=== PATIENT | female | born 1955 | race Caucasian/White ===

== ENCOUNTER 2017-08-24 12:30 | Outpatient (CLI) | payer BC, OTHER ==
[2017-08-24 17:46] LABS: BILIRUBIN,URINE NEGATIVE (NEGATIVE); PH,URINE 7.5 PH (5.0-7.5)
[2017-08-24 18:29] LABS: UR CULTURE IF IND NOT INDICATED
== END 2017-08-24 12:31 ==
LOC: LAB.R 12:30
PROVIDERS: ATTEND Physician Assistant Medical
DX: N39.0 Urinary tract infection, site not specified (principal)
CPT/HCPCS: 81001; 87086

== ENCOUNTER 2017-10-05 08:00 | Outpatient (CLI) | payer OTHER ==
[2017-10-05 18:20] LABS: BILIRUBIN,URINE NEGATIVE (NEGATIVE); GLUCOSE, URINE (UA) NEGATIVE (NEGATIVE); KETONES,URINE (UA) NEGATIVE (NEGATIVE); LEUKOCYTE ESTERASE, URINE NEGATIVE (NEGATIVE); NITRITE,URINE NEGATIVE (NEGATIVE); OCCULT BLOOD,URINE NEGATIVE (NEGATIVE); PROTEIN,URINE NEGATIVE (NEGATIVE); UROBILINOGEN,URINE 0.2 (NORMAL) E.U./dL (NORMAL)
[2017-10-05 18:24] LABS: CLARITY,URINE CLEAR (CLEAR)
[2017-10-05 18:35] LABS: BACTERIA,URINE None Seen /HPF (None Seen); RBC,URINE 0-5 /HPF (0-5); SQUAMOUS EPITHELIAL CELL,UR RARE Squamous (<= Few)
== END 2017-10-05 08:01 | disposition home or self-care (01) ==
LOC: LAB.R 08:00
PROVIDERS: ATTEND Nurse Practitioner Family
DX: N39.0 Urinary tract infection, site not specified (principal)
CPT/HCPCS: 81001; 87086

== ENCOUNTER 2018-05-26 14:30 | Outpatient (CLI) | payer OTHER ==
[2018-05-26 17:36] LABS: ALBUMIN 4.7 g/dL (3.2-5.5); ALBUMIN/GLOBULIN RATIO 1.7 (1.0-2.2); BILIRUBIN,TOTAL 0.9 mg/dL (0.2-1.0); CALCIUM 9.9 mg/dL (8.5-10.3); CREATININE 0.6 mg/dL (0.4-1.0); TOTAL PROTEIN 7.5 g/dL (6.7-8.2)
[2018-05-26 17:59] LABS: BASOPHILS % (AUTO) 0.4 %; EOSINOPHILS # (AUTO) 0.2 10^3/uL (0.0-0.7); EOSINOPHILS % (AUTO) 2.9 %; HGB - HEMOGLOBIN 14.8 g/dL (12.0-16.0); LYMPHOCYTES % (AUTO) 29.6 %; MEAN CORPUSCULAR HEMOGLOBIN 31.6 pg (27.0-31.0); MEAN CORPUSCULAR HGB CONC 34.6 g/dL (32.0-36.0); MEAN CORPUSCULAR VOLUME 91.4 fL (81.0-99.0); MEAN PLATELET VOLUME 8.1 fL (7.9-10.8); MONOCYTES # (AUTO) 0.6 10^3/uL (0.0-1.0); NEUTROPHILS % (AUTO) 58.1 %; PLT - PLATELET COUNT 290 10^3/uL (130-450); RED BLOOD COUNT 4.68 10^6/uL (4.20-5.40); WHITE BLOOD COUNT 6.8 x10^3/uL (4.8-10.8)
== END 2018-05-26 14:31 | disposition home or self-care (01) ==
LOC: LAB.F 14:30
PROVIDERS: ATTEND Physician Assistant Medical
DX: Z51.81 Encounter for therapeutic drug level monitoring (principal); Z79.899 Other long term (current) drug therapy
CPT/HCPCS: 36415; 80053; 85025

== ENCOUNTER 2020-02-15 02:38 | Emergency (ER) | payer BC ==
--- NOTE | 2020-02-15 02:41 | ED Physician Documentation ---
History of Present Illness - Stated complaint Stated Complaint: LEFT AB PX - History obtained from History obtained from: Patient (Patient is a 64-year-old female presents with a chief complaint of diffuse abdominal pain with nausea. She reports she is got a history of colon cancer with bowel resection and has had 2 previous bowel obstructions and she thinks she is have another bowel obstruction she ate dinner about 8:00 PM yesterday and since then she has had worsening nausea vomiting abdominal pain unable to pass any flatus and no bowel movements in the last 48 hours.) Review of Systems Constitutional: reports: Reviewed and negative Eyes: reports: Reviewed and negative Ears: reports: Reviewed and negative Nose: reports: Reviewed and negative Throat: reports: Reviewed and negative Cardiac: reports: Reviewed and negative Respiratory: reports: Reviewed and negative GI: reports: Abdominal Pain, Nausea, Vomiting : reports: Reviewed and negative Skin: reports: Reviewed and negative Musculoskeletal: reports: Reviewed and negative Neurologic: reports: Reviewed and negative Psychiatric: reports: Reviewed and negative Endocrine: reports: Reviewed and negative Immunocompromised: reports: Reviewed and negative PD PAST MEDICAL HISTORY - Present Medications Home Medications: Ambulatory Orders Medication Instructions Recorded Confirmed Hydrocodone/Acetaminophen [[place] 1 each PO Q6HR PRN #14 tablet 02/15/20 5-325 Tablet] Ondansetron Odt [Zofran Odt] 4 mg TL Q6H PRN #10 tablet 02/15/20 - Allergies Allergies/Adverse Reactions: Allergies Allergy/AdvReac Type Severity Reaction Status Date / Time No Known Drug Allergies Allergy Verified 02/15/20 03:21 PD ED PE NORMAL - Vitals Vital signs reviewed: Yes - General General: Alert and oriented X 3, No acute distress, Well developed/nourished - HEENT HEENT: Atraumatic, PERRL, Moist mucous membranes - Neck Neck: Supple, no meningeal sign - Cardiac Cardiac: RRR, No murmur, Strong equal pulses - Respiratory Respiratory: No respiratory distress, Clear bilaterally - Abdomen Abdomen: Other (The abdomen is diffusely tender to palpation with diminished bowel sounds there is no midline abdominal pulsatile mass patient is voluntarily guarding negative Da Silva sign negative Rovsing's negative psoas as no CVA tenderness no flank ecchymosis and no periumbilical ecchymosis.) - Derm Derm: Warm and dry - Extremities Extremities: No deformity, No tenderness to palpate, Normal ROM s pain, No edema, No calf tenderness / cord - Neuro Neuro: Alert and oriented X 3, gate attendant 2-12 intact, No motor deficit, No sensory deficit, Normal speech - Psych Psych: Normal mood, Normal affect Results - Vitals Vitals: Vital Signs - 24 hr 02/15/20 02/15/20 02:53 04:35 Temperature 36.9 C Heart Rate 88 82 Respiratory 16 16 Rate Blood Pressure 166/102 H 123/86 H O2 Saturation 98 95 Oxygen O2 Source Room air - EKG (time done) 03:00 Rate: Other (No STEMI) - Labs Labs: Laboratory Tests 02/15/20 02/15/20 02/15/20 03:08 03:08 03:08 WBC 4.9 RBC 5.00 Hgb 15.3 Hct 45.9 MCV 91.8 MCH 30.6 MCHC 33.3 RDW 11.4 L Plt Count 298 MPV 9.2 Neut # (Auto) 2.6 Lymph # (Auto) 1.9 [place] # (Auto) 0.3 Eos # (Auto) 0.1 Baso # (Auto) 0.0 Absolute Nucleated RBC 0.00 Nucleated RBC % 0.0 PT 11.0 INR 1.0 APTT 34.4 H Sodium 140 Potassium 3.6 Chloride 101 Carbon Dioxide 26 Anion Gap 13.0 BUN 18 Creatinine 0.6 Estimated GFR (MDRD) 101 Glucose 99 Lactic Acid Calcium 9.7 Total Bilirubin 0.8 AST 33 ALT 50 Alkaline Phosphatase 64 Total Creatine Kinase 104 Troponin I High Sens Total Protein 7.7 Albumin 4.9 Globulin 2.8 Albumin/Globulin Ratio 1.8 Lipase 139 H Urine Color Urine Clarity Urine pH Ur Specific Harrison Urine Protein Urine Glucose (UA) Urine Ketones Urine Occult Blood Urine Nitrite Urine Bilirubin Urine Urobilinogen Ur Leukocyte Esterase Urine RBC Urine WBC Ur Squamous Epith Cells Urine Bacteria Ur Microscopic Review Urine Culture Comments Urine Opiates Screen Ur Oxycodone Screen Urine Methadone Screen Ur Propoxyphene Screen Ur Barbiturates Screen Ur Tricyclics Screen Ur Phencyclidine Scrn Ur Amphetamine Screen U Methamphetamines Scrn U Benzodiazepines Scrn Urine Cocaine Screen U Cannabinoids Screen Ethyl Alcohol 8.6 02/15/20 02/15/20 02/15/20 03:08 03:08 04:50 WBC RBC Hgb Hct MCV MCH MCHC RDW Plt Count MPV Neut # (Auto) Lymph # (Auto) [place] # (Auto) Eos # (Auto) Baso # (Auto) Absolute Nucleated RBC Nucleated RBC % PT INR APTT Sodium Potassium Chloride Carbon Dioxide Anion Gap BUN Creatinine Estimated GFR (MDRD) Glucose Lactic Acid 1.1 Calcium Total Bilirubin AST ALT Alkaline Phosphatase Total Creatine Kinase Troponin I High Sens < 2.3 L Total Protein Albumin Globulin Albumin/Globulin Ratio Lipase Urine Color YELLOW Urine Clarity CLEAR Urine pH 5.5 Ur Specific Harrison 1.010 Urine Protein NEGATIVE Urine Glucose (UA) NEGATIVE Urine Ketones NEGATIVE Urine Occult Blood LARGE H Urine Nitrite NEGATIVE Urine Bilirubin NEGATIVE Urine Urobilinogen 0.2 (NORMAL) Ur Leukocyte Esterase NEGATIVE Urine RBC TNTC H Urine WBC 0-3 Ur Squamous Epith Cells FEW Squamous Urine Bacteria Rare Ur Microscopic Review INDICATED Urine Culture Comments NOT INDICATED Urine Opiates Screen POSITIVE H Ur Oxycodone Screen NEGATIVE Urine Methadone Screen NEGATIVE Ur Propoxyphene Screen NEGATIVE Ur Barbiturates Screen NEGATIVE Ur Tricyclics Screen NEGATIVE Ur Phencyclidine Scrn NEGATIVE Ur Amphetamine Screen NEGATIVE U Methamphetamines Scrn NEGATIVE U Benzodiazepines Scrn NEGATIVE Urine Cocaine Screen NEGATIVE U Cannabinoids Screen NEGATIVE Ethyl Alcohol PD MEDICAL DECISION MAKING - ED course Complexity details: reviewed results, re-evaluated patient (pain resolved. ct shows 5mm mid ureteral stone. afebrile, no white count, kidney function appropriate. will dc with close f/u.), considered differential (History and exam are concerning for bowel obstruction. also in the diff dx would be diverticulitis, kidney stones. ), d/w patient Departure - Departure Disposition: 01 Home, Self Care Clinical Impression: Kidney stone on left side Condition: Stable Instructions: Kidney Stones Follow-Up: Afsaneh Roberts MD [Physician No Access] - Sharon Raza ARNP [Primary Care Provider] - Prescriptions: Hydrocodone/Acetaminophen [[place] 5-325 Tablet] 1 each PO Q6HR PRN #14 tablet PRN Reason: Pain Ondansetron Odt [Zofran Odt] 4 mg TL Q6H PRN #10 tablet PRN Reason: Nausea / Vomiting Comments: hydrate well, call your pcp and the urologist today to schedule a follow up. take prescribed medications as directed as needed for your symptoms.
[2020-02-15] MEDS ORDERED: SODIUM CHLORIDE 0.9% 1,000 ML IV STA (02:55)
[2020-02-15] MEDS ORDERED: ONDANSETRON 4 MG/2 ML VIAL IVP STA (02:55)
[2020-02-15] MEDS ORDERED: MORPHINE 2 MG/ML CARPUJECT IVP STA (02:55)
[2020-02-15 03:17] LABS: BASOPHILS % (AUTO) 0.6 %; EOSINOPHILS # (AUTO) 0.1 10^3/uL (0.0-0.7); EOSINOPHILS % (AUTO) 1.8 %; HGB - HEMOGLOBIN 15.3 g/dL (12.0-16.0); LYMPHOCYTES # (AUTO) 1.9 10^3/uL (1.5-3.5); LYMPHOCYTES % (AUTO) 38.2 %; MEAN CORPUSCULAR HEMOGLOBIN 30.6 pg (27.0-31.0); MEAN CORPUSCULAR HGB CONC 33.3 g/dL (32.0-36.0); MEAN CORPUSCULAR VOLUME 91.8 fL (81.0-99.0); MEAN PLATELET VOLUME 9.2 fL (7.9-10.8); MONOCYTES # (AUTO) 0.3 10^3/uL (0.0-1.0); MONOCYTES % (AUTO) 6.5 %; NEUTROPHILS # (AUTO) 2.6 10^3/uL (1.5-6.6); NEUTROPHILS % (AUTO) 52.7 %; PLT - PLATELET COUNT 298 10^3/uL (130-450); RED CELL DISTRIBUTION WIDTH 11.4 % (12.0-15.0); WHITE BLOOD COUNT 4.9 x10^3/uL (4.8-10.8)
[2020-02-15 03:27] LABS: ALBUMIN 4.9 g/dL (3.2-5.5); ALBUMIN/GLOBULIN RATIO 1.8 (1.0-2.2); BILIRUBIN,TOTAL 0.8 mg/dL (0.2-1.0); CALCIUM 9.7 mg/dL (8.5-10.3); CREATININE 0.6 mg/dL (0.4-1.0); TOTAL PROTEIN 7.7 g/dL (6.7-8.2)
[2020-02-15] MEDS ORDERED: PROMETHAZINE INJ 12.5 MG in SODIUM CHLORIDE 0.9% 50 ML IV STA (03:28)
[2020-02-15] MEDS ORDERED: IOVERSOL 320 100 ML VIAL IVP ONE ×2 (03:31→04:19)
--- NOTE | 2020-02-15 03:32 | XRAY Report ---
Reason: cp Procedure Date: 02/15/2020 Accession Number: [id number] / [id number] Procedure: XR - Chest 1 View X-Ray CPT Code: 82875 Final Report FULL RESULT: EXAM: CHEST RADIOGRAPHY EXAM DATE: 02/15/2020 03:23 AM. CLINICAL HISTORY: Chest pain COMPARISON: XR ACUTE ABDOMEN SERIES 03/15/2008 9:01 AM. TECHNIQUE: 1 view. FINDINGS: The mediastinal and cardiac silhouettes are normal. The lungs are clear. No pleural effusion or pneumothorax is seen. Mild degenerative changes are seen in the spine. IMPRESSION: Clear lungs. RADIA
[2020-02-15 03:38] LABS: PARTIAL THROMBOPLASTIN TIME 34.4 secs (24.9-33.3)
--- NOTE | 2020-02-15 04:40 | CT Report ---
Reason: abd pain Procedure Date: 02/15/2020 Accession Number: [id number] / [id number] Procedure: CT - Abdomen/Pelvis W CPT Code: Final Report FULL RESULT: EXAM: CT ABDOMEN AND PELVIS EXAM DATE: 02/15/2020 04:13 AM. CLINICAL HISTORY: Diffuse abdominal pain. History of colon cancer and bowel obstructions. COMPARISONS: None. TECHNIQUE: Routine helical CT imaging was performed through the abdomen and pelvis. IV contrast: OPTIRAY 320. Enteric contrast: No. Reconstructions: Coronal and sagittal. In accordance with CT protocol optimization, one or more of the following dose reduction techniques were utilized for this exam: automated exposure control, adjustment of mA and/or KV based on patient size, or use of iterative reconstructive technique. FINDINGS: Bibasilar dependent atelectasis is seen. The visible heart is normal in size. There is no pericardial effusion. There is diffuse hepatic hypoattenuation suggesting hepatic steatosis. No focal intrahepatic mass is seen. The gallbladder is normal. There is no biliary dilatation. The spleen, pancreas, and adrenal glands are normal. The kidneys enhance symmetrically. A 6 mm calculus is seen in the midpole of the left kidney, and there is a 5 mm calculus in the proximal left ureter. Moderate hydroureteronephrosis is seen. No additional ureteral calculi are seen. No right renal calculi are present. There is no right hydronephrosis. No perinephric edema is seen. Postoperative changes from a partial sigmoid colectomy are seen. Retained stool is present throughout the colon. The appendix is not visible. There is no evidence of bowel obstruction or inflammation. No free intraperitoneal air or ascites is present. There is no lymphadenopathy. Surgical clips are seen adjacent to the aorta and left common iliac artery. The abdominal aorta is normal in caliber and position. The bladder is normal. The uterus is normal. A calcification is seen in the right ovary. Left ovary is normal. No free pelvic fluid is seen. Degenerative disk disease is seen at L4-L5 and L5-S1. There are no suspicious lytic or blastic lesions. No acute fracture is seen. IMPRESSION: 1. 5 mm proximal left ureteral calculus with moderate hydroureteronephrosis. 2. 6 mm calculus in the lower pole of the left kidney. RADIA
[2020-02-15 05:30] LABS: MUDS CUTOFF CONCENTRATIONS CUTOFF CONC BELOW:
[2020-02-15 05:33] LABS: BILIRUBIN,URINE NEGATIVE (NEGATIVE); GLUCOSE, URINE (UA) NEGATIVE (NEGATIVE); KETONES,URINE (UA) NEGATIVE (NEGATIVE); LEUKOCYTE ESTERASE, URINE NEGATIVE (NEGATIVE); NITRITE,URINE NEGATIVE (NEGATIVE); OCCULT BLOOD,URINE LARGE (NEGATIVE); PH,URINE 5.5 PH (5.0-7.5); PROTEIN,URINE NEGATIVE (NEGATIVE); UROBILINOGEN,URINE 0.2 (NORMAL) E.U./dL (NORMAL)
[2020-02-15 05:41] LABS: CLARITY,URINE CLEAR (CLEAR)
[2020-02-15 05:43] LABS: BACTERIA,URINE Rare /HPF (None Seen); RBC,URINE TNTC /HPF (0-5); SQUAMOUS EPITHELIAL CELL,UR FEW Squamous (<= Few)
[2020-02-15 05:44] LABS: AMPHETAMINE SCREEN,URINE NEGATIVE (NEGATIVE); BENZODIAZEPINES SCREEN, URINE NEGATIVE (NEGATIVE); COCAINE SCREEN URINE NEGATIVE (NEGATIVE); METHADONE SCREEN, URINE NEGATIVE (NEGATIVE); METHAMPHETAMINES SCREEN, URINE NEGATIVE (NEGATIVE); OPIATE SCREEN, URINE POSITIVE (NEGATIVE); OXYCODONE SCREEN, URINE NEGATIVE (NEGATIVE); PROPOXYPHENE SCREEN, URINE NEGATIVE (NEGATIVE); TRICYCLIC ANTIDEPRESSANT,URINE NEGATIVE (NEGATIVE)
[2020-02-15 06:02] VITALS: BP 108/72
== END 2020-02-15 06:02 | disposition home or self-care (01) ==
LOC: ED 02:38
DX: N13.2 Hydronephrosis with renal and ureteral calculous obstruction (principal); Z85.038 Personal history of other malignant neoplasm of large intestine; Z90.49 Acquired absence of other specified parts of digestive tract
CPT/HCPCS: 36415; 71045; 74177; 80053; 80320; 81001; 82550; 83605; 83690; 84484; 85025; 85610; 85730; 93005; 96365; 96375; 99284; Q9967; 80306; 81003; 87086

== ENCOUNTER 2020-07-22 11:41 | Outpatient (CLI) | payer BC ==
[2020-07-24 12:41] LABS: ANA SCREEN NEGATIVE (NEGATIVE)
== END 2020-07-22 11:42 | disposition home or self-care (01) ==
LOC: LAB 11:41
PROVIDERS: ATTEND Orthopaedic Surgery
DX: M25.511 Pain in right shoulder (principal); G89.29 Other chronic pain; M25.551 Pain in right hip
CPT/HCPCS: 36415; 82728; 85651; 86038; 86140; 86225

== ENCOUNTER 2020-10-17 12:35 | Outpatient (CLI) | payer BC ==
--- NOTE | 2020-10-30 14:33 | Mammography Report ---
BILATERAL DIGITAL SCREENING MAMMOGRAM 3D/2D: 10/17/2020 CLINICAL: Routine screening. No prior exams were available for comparison. There are scattered fibroglandular elements in both br easts. There are benign calcifications in both breasts. No significant masses, calcifications, or other findings are seen in either breast. IMPRESSION: BENIGN There is no mammographic evidence of malignancy. A 1 year screening mammogram is recommended. This exam was interpreted at Station ID: [id number]. NOTE: For mammograms, a report in lay terms will be sent to the patient. Approximately 15% of breast malignancies will not be visualized mammographically. In the management of a palpable breast mass, a negative mammogram must not discourage biopsy of a clinically suspicious lesion. Electronically Signed By: Scott Hannah M.D. ddp/penrad:10/29/2020 13:19:51 ACR BI-RADS Category 2: Benign Finding(s) 3342F PARENCHYMAL PATTERN: (A) - The breast(s) demonstrate(s) scattered fibroglandular densities. BI-RADS CATEGORY: (2) - 2 RECOMMENDATION: (ANNUAL) - Recommend routine annual screening mammography. [id number] 1 year screening LATERALITY: (B)
== END 2020-10-17 12:36 | disposition home or self-care (01) ==
LOC: DI.N 12:35
DX: Z12.31 Encounter for screening mammogram for malignant neoplasm of breast (principal)

== ENCOUNTER 2023-01-15 11:21 | Outpatient (CLI) | payer MEDICARE, BC ==
[2023-01-15 14:34] LABS: BASOPHILS % (AUTO) 0.8 %; EOSINOPHILS % (AUTO) 0.6 %; HCT - HEMATOCRIT 45.3 % (37.0-47.0); HGB - HEMOGLOBIN 14.9 g/dL (12.0-16.0); LYMPHOCYTES # (AUTO) 1.8 10^3/uL (1.5-3.5); LYMPHOCYTES % (AUTO) 35.5 %; MEAN CORPUSCULAR HGB CONC 32.9 g/dL (32.0-36.0); MEAN CORPUSCULAR VOLUME 94.4 fL (81.0-99.0); MEAN PLATELET VOLUME 9.8 fL (7.9-10.8); MONOCYTES # (AUTO) 0.5 10^3/uL (0.0-1.0); NEUTROPHILS # (AUTO) 2.7 10^3/uL (1.5-6.6); NEUTROPHILS % (AUTO) 53.9 %; PLT - PLATELET COUNT 321 10^3/uL (130-450); RED CELL DISTRIBUTION WIDTH 11.1 % (12.0-15.0)
[2023-01-15 15:30] LABS: ALBUMIN 5.1 g/dL (3.2-5.5); ALKALINE PHOSPHATASE 55 IU/L (42-121); ALT ALANINE AMINOTRANSFERASE 59 IU/L (10-60); AST ASPARTATE AMINOTRANSFERASE 44 IU/L (10-42); BILIRUBIN,TOTAL 0.8 mg/dL (0.2-1.0); BUN - BLOOD UREA NITROGEN 11 mg/dL (6-20); CALCIUM 9.7 mg/dL (8.5-10.3); CARBON DIOXIDE - CO2 25 mmol/L (21-32); CHLORIDE 102 mmol/L (101-111); CHOL/HDL RATIO 3.8 (<4.4); CHOLESTEROL 325 mg/dL; CREATININE 0.4 mg/dL (0.4-1.0); GFR - MDRD 160 (>89); GLUCOSE 98 mg/dL (70-100); HDL CHOLESTEROL 86 mg/dL; LDL CHOLESTEROL,CALCULATED 220 mg/dL; LDL/HDL RATIO 2.6 (<4.4); POTASSIUM 4.1 mmol/L (3.5-5.0); SODIUM 136 mmol/L (135-145); TOTAL PROTEIN 7.7 g/dL (6.7-8.2); TRIGLYCERIDES 93 mg/dL; VLDL CHOLESTEROL 19 mg/dL
[2023-01-15 15:38] LABS: THYROID STIMULATING HORMONE 1.63 uIU/mL (0.34-5.60)
== END 2023-01-15 11:22 | disposition home or self-care (01) ==
LOC: LAB.S 11:21
PROVIDERS: ATTEND Registered Nurse
DX: E78.5 Hyperlipidemia, unspecified (principal); Z79.899 Other long term (current) drug therapy
CPT/HCPCS: 36415; 80053; 80061; 83721; 84443; 85025; 87086

== ENCOUNTER 2023-01-28 21:07 | Emergency (ER) | payer MEDICARE, BC ==
--- NOTE | 2023-01-28 21:50 | ED Physician Documentation ---
PD HPI UPPER EXT INJURY - Stated complaint Stated Complaint: L FINGER LAC - Chief complaint Chief Complaint: Laceration - History obtained from History obtained from: Patient - Additonal information Additional information: HPI from patient. Patient is right-hand dominant. 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 Does not know if she is UTD on tetanus immunization Review of Systems Skin: reports: Laceration (s) Musculoskeletal: reports: Extremity pain Neurologic: reports: Focal weakness, Numbness PD PAST MEDICAL HISTORY - Past Medical History Neuro: Migraines GI: Other - Past Surgical History Past Surgical History: Yes General: Gastric surgery - Present Medications Home Medications: Ambulatory Orders Medication Instructions Recorded Confirmed Oxycodone HCl/Acetaminophen 1 - 2 each PO Q6H PRN #14 tablet 01/29/23 [Percocet 5-325 mg Tablet] - Allergies Allergies/Adverse Reactions: Allergies Allergy/AdvReac Type Severity Reaction Status Date / Time No Known Drug Allergies Allergy Verified 01/28/23 21:18 - Social History Does the pt smoke?: No Smoking Status: Never smoker Does the pt drink ETOH?: Yes Does the pt have substance abuse?: No - Immunizations Immunizations are current?: Yes PD ED PE NORMAL - Vitals Vital signs reviewed: Yes - General General: Alert and oriented X 3, No acute distress, Well developed/nourished PD ED PE EXPANDED - Extremities Extremities: Limited ROM, Laceration, Sensory intact (diminished LTS distal to PIP flexion crease, radial aspect), Vascular intact (normal skin color and brisk capillary refill left second finger at fingertip). No: Tendon intact (full extension of left 2nd finger but unable to flex at DIP joint (no movement with effort), and minimal flexion at PIP joint) DANIELA UE/Hands Visual: 1 - laceration (1 cm length, active brisk bleeding) Results - Vitals Vitals: Oxygen O2 Source Room air Procedures - Laceration (location) Finger left Length in cm: 1 Wound type: Linear, Into subcut fat, Clean Neurovascular status: Vascular intact Tendon involvement: Tendon Injury (suspected based on inability to flex DIP joint but adipose tissue precludes direct visualization of the tendon) Anesthesia: Lidocaine 1% Wound preparation: Hibiclens, Irrigated copiously NS Skin layer closure: Other (runing suture with three throws as well as two simple interrupted sutures to close small gaps between the running sutures) Other: Patient tolerated well, Dressing applied, Tetanus booster given PD Medical Decision Making - ED course Complexity details: considered differential, d/w patient ED course: Exam is suggestive of flexor tendon injury; as noted above, swelling of the underlying adipose tissue precludes visualization of the structures deep to the laceration including flexor tendon. I contacted Dr. Nettles (orthopedic surgery [facility]), recommends patient follow up with hand specialist as he does not perform flexor tendon repair. I then discussed the case with Dr. Reyes ([facility] [place], chronic disease epidemiologist for [facility]). She also does not perform flexor tendon repair but says there is another physician within the [facility] group that does; uncertain if this physician will be able to accommodate the reevaluation of this patient in the coming week. Plan is to provide patient with contact information for the [facility] [place] and they can either schedule patient for follow up if feasible, and otherwise can provide further information regarding appropriate follow up. I discussed this with the patient, including that [facility] might not be able to accommodate the follow up (mostly will be dependent on the hand surgeon's availability/schedule). I also explained that [facility] might be able to provide other information for options for follow up , but that patient should also work with her insurance provider and primary care provider for appropriate follow-up and referrals. Return precautions are discussed. She is given 5mg oxycodone in ED with adequate pain relief, and rx for same e-prescribed to patient's pharmacy of choice. I am prescribing a short course of short-acting opioid pain medication for this patient. I have reviewed the patients GENETIC SUPERVISOR and no concerning findings were noted. I have discussed that the opioids are for short term therapy only, and will not be refilled from the ED. Departure - Departure Disposition: 01 Home, Self Care Clinical Impression: Finger laceration involving tendon Qualifiers: Encounter type: initial encounter Qualified Code(s): S61.219A - Laceration without foreign body of unspecified finger without damage to nail, initial encounter Condition: Good Instructions: ED Laceration Hand, ED Laceration Tendon Follow-Up: Sharon Raza ARNP [Primary Care Provider] - (7-10 days for removal of the stitches) Prescriptions: Oxycodone HCl/Acetaminophen [Percocet 5-325 mg Tablet] 1 - 2 each PO Q6H PRN #14 tablet PRN Reason: pain Comments: You will need to have the stitches removed in 7 to 10 days. Contact your primary care provider in the morning when the office opens to arrange for this appointment. Due to your inability to bend (flex) the finger, I suspect that you have lacerated the tendon in your finger. If so, this typically requires surgical repair, which should be performed within 7 to 10 days. I spoke with the orthopedic surgeon for [facility] and he recommends that you see a specialist (hand surgeon) for this repair if it is needed; he does not perform this procedure. I then spoke with the orthopedic surgeon on duty at [facility]. Her office information is provided below. She says that she also does not perform tendon repair surgery, but there is someone in her group who does. Whether the person who does this procedure will be available in the coming week can be determined tomorrow when the office opens. If this orthopedics group is unable to accommodate your reevaluation, they can provide you with information for other hand surgeons who might be able to reevaluate you. As we discussed, I would also encourage you to contact your primary care provider's office to ask them about referral to a hand surgeon. I was unable to visualize the tendon when I stitched your laceration, and thus the diagnosis of tendon laceration is based on your inability to bend your finger rather than visualization of an injured tendon. It is possible that, when you are reevaluated in the outpatient setting, that you have good range of motion which would suggest against a tendon injury. However, I would assume the tendon injured until you are reevaluated and told otherwise. A prescription for the pain medication (Percocet, which is oxycodone with acetaminophen) has been electronically submitted to the [email or web address] pharmacy in [place]. [facility], [address], [place] [id number] I am prescribing a short course of narcotic pain medication for you. These are potentially dangerous and addictive medications that should be used carefully. These medications may constipate you. Take an [id number] stool softener (docusate) twice daily with plenty of water while taking these medications. If you go 24 hours without a bowel movement, take [id number] miralax, per package instructions. Do not drink or drive while taking these medications. If you received narcotic or sedating medications while in the emergency department, do not drive for 24 hours. Store this medication in a safe, secure place and out of reach of children. It is a violation of federal law to give or sell this medication to another person or to use in a manner other than prescribed. The ED will not refill narcotic prescriptions, including prescriptions lost or stolen. To dispose of unwanted medications: 1. [facility] at [address] in [place] has a medication drop box. They accept prescription medications (in pill form) Wednesday through Wednesday 9:00 a.m. to 5:00 p.m. 2. The [facility] accepts prescription medications (in pill form only) for disposal year round. Call for more information. 3. Contact the [facility] for the next [facility] sponsored prescription drug collection event. , [phone], or [phone]; Discharge Date/Time: 01/29/23 02:00
[2023-01-28] MEDS ORDERED: TETANUS/DIPHTHERIA/PERTUSSIS 0.5 ML SYRINGE IM ONE (22:08)
[2023-01-28] MEDS ORDERED: oxyCODONE 5 MG TABLET PO STA (22:08)
[2023-01-28] MEDS ORDERED: LIDOCAINE 1% 2 ML VIAL SUBQ STA (22:21)
[2023-01-28] MEDS ORDERED: BUPIVACAINE 0.5% PF 10 ML VIAL SUBQ STA (22:22)
[2023-01-29] MEDS ORDERED: oxyCODONE/ACET 5/325 Prepack 4 PO STA (01:12)
[2023-01-29 01:33] VITALS: BP 102/68
== END 2023-01-29 02:00 | disposition home or self-care (01) ==
LOC: ED 21:07
DX: S61.211A Laceration without foreign body of left index finger without damage to nail, initial encounter (principal); S56.122A Laceration of flexor muscle, fascia and tendon of left index finger at forearm level, initial encounter; W26.0XXA Contact with knife, initial encounter; Y93.89 Activity, other specified
CPT/HCPCS: 12001; 90471; 90715; 99283; A9270